=== PATIENT | female | born 1955 | race African-American/Black ===

== ENCOUNTER → 2019-02-10 | Outpatient (CLI) | payer MEDICARE, OTHER ==
[~2019-02-10] MED LIST: ATOR20TA66 PO; MTF500T PO; PANT20TA2 PO
--- NOTE | 2019-02-10 09:39 | Diagnostic Imaging Report ---
INDICATION: Epigastric abdominal pain for 2 weeks Supine and upright views of the abdomen are obtained. There is mild to moderate amount of stool throughout the colon. There is no evidence of transition point to indicate a bowel obstruction. No free intraperitoneal gas or pneumatosis is identified. There is no evidence of pathologic abdominal calcification. IMPRESSION: No acute abnormality. Dictated by: Dictated on workstation # [id number]
== END ==
LOC: RAD FS 09:12
PROVIDERS: ATTEND Family Medicine
DX: R10.13 Epigastric pain (principal)
CPT/HCPCS: 74019

== ENCOUNTER → 2019-09-21 | Outpatient (CLI) | payer MEDICARE, OTHER ==
--- NOTE | 2019-09-21 15:56 | Diagnostic Imaging Report ---
INDICATION: Abdominal pain with nausea and vomiting. TIME OF EXAM: 3:30 p.m. FINDINGS: No free air is identified. The bowel gas pattern is nonobstructive. Moderate stool in the right and left colon is noted. Small bowel is nondilated. No pathologic calcifications are seen. IMPRESSION: No acute abnormality is detected. Dictated by: Dictated on workstation # [id number]
== END ==
LOC: RAD FS 15:22
PROVIDERS: ATTEND Nurse Practitioner Family
DX: R10.13 Epigastric pain (principal); R11.2 Nausea with vomiting, unspecified
CPT/HCPCS: 74019

== ENCOUNTER 2023-06-18 06:06 | Outpatient (CLI) | payer MEDICARE, OTHER ==
[~2023-06-18] VITALS: Ht 152.4 cm; Wt 62.1 kg
== END 2023-06-20 12:41 | disposition home or self-care (01) ==
LOC: PREOP 06:06
PROVIDERS: ATTEND Surgery
DX: Z01.818 Encounter for other preprocedural examination (principal)